=== PATIENT | female | born 1945 | race Caucasian/White ===

== ENCOUNTER 2016-10-29 11:05 | Emergency (ER) | payer BC ==
--- OUTSIDE RECORDS SUMMARY | 2016-10-29 11:26 | XMS REPORT | Continuity of Care Document ---
:1945 Author Organization [facility] ([facility]) Address [address] [place] [address] Phone [phone] Care Team Providers Name Role Phone Samira Cavazos Primary Care Provider [phone] Source Comments This disclosure is being made pursuant to the Care Everywhere program, applicable federal and state laws, and may not contain all informaitonavailable regarding this patient.[facility] ([facility]) Active Allergies and Adverse Reactions Allergen Noted Date Severity Reactions Comments Alendronate 08/11/2013 OTHER Joint pain Codeine Mental status changes,Dizziness,Weakness Diazepam 02/02/2013 Mental status changes Ibandronate 08/11/2013 Pruritus Lisinopril 08/11/2013 Diarrhea Lorazepam 02/02/2013 Mental status changes Morphine 02/02/2013 Mental status changes Current Medications Prescription Sig. Disp. Refills Start Date End Date Status acetaminophen 325 mg Take 2 Tabs by mouth 30 Tab 0 02/02/2013 Active tablet every 4 hours as needed. Indications: PAIN docusate 100 mg Take 1 Cap by mouth 2 30 Cap 0 02/02/2013 Active capsule times daily as needed. Indications: CONSTIPATION sennosides 8.6 mg Take 1-2 Tabs by 30 Tab 0 02/02/2013 Active tablet mouth 2 times daily as needed. Indications: CONSTIPATION aspirin 81 mg chewable Take 81 mg by mouth Active tablet daily. calcium carbonate (500 Take 1 Tab by mouth 2 Active mg Ca) 1250 mg times daily. -vitamin D 200 unit per tablet fluticasone 50 use 2 Sprays into the Active mcg/Actuation nasal nose daily. spray calcitonin 200 use 1 [place] into the Active unit/actuation nasal nose daily. Alternate spray nostrils. Indications: POST-MENOPAUSAL OSTEOPOROSIS metoPROLol succinate Take 50 mg by mouth Active 50 mg XL tablet daily. atorvastatin 10 mg Take 10 mg by mouth Active tablet every evening. Active Problems Problem Noted Date PVD (posterior vitreous detachment) 06/22/2014 Cataract, nuclear sclerotic, both eyes 06/22/2014 Bilateral myopia 08/11/2013 Posterior vitreous detachment, left eye 08/11/2013 Myopia 08/11/2013 HTN (hypertension) 02/02/2013 Traumatic subarachnoid hemorrhage 02/01/2013 Brain contusion 02/01/2013 Trauma 02/01/2013 Mammographic microcalcification 07/29/2005 Abnormal mammogram, unspecified 10/21/2001 Social History Tobacco Use Types Packs/Day Years Used Date Former Smoker Cigarettes 1 20 Quit: 10/23/2008 Smokeless Tobacco: Never Used Tobacco Cessation:Counseling Given: Yes Comments: Alcohol Use Drinks/Week oz/Week Comments Yes 7 Glasses of wine Last Filed Vital Signs Vital Sign Reading Time Taken Blood Pressure 174/80 03/14/2013 2:26 PM CDT Pulse 61 03/14/2013 2:26 PM CDT Temperature 36.7 C (98.1 F) 03/14/2013 2:26 PM CDT Respiratory Rate 16 02/02/2013 3:15 PM CDT Height 1.651 m (5' 5") 03/14/2013 2:26 PM CDT Weight 60.555 kg (133 lb 8 oz) 03/14/2013 2:26 PM CDT Body Mass Index 22.22 03/14/2013 2:26 PM CDT Oxygen Saturation 96% 02/02/2013 12:00 PM CDT Plan of Care Health Maintenance Due Date Last Done Comments HCV Screening 1945 Hepatitis B Vaccine (1 of 3 1945 - Primary Series) Tdap Vaccine 1957 Lipid Disorder Screening 1963 Td Vaccine 1963 Colonoscopy 07/17/1996 Zoster Vaccine 2006 Mammogram 12/18/2007 12/17/2006, Additional history exists 12/16/2005, 12/12/2004 Osteoporosis Screening (DXA 2011 Bone Density) Pneumococcal Vaccine (1 of 2 2011 - PCV13) Influenza Vaccine: Seasonal 12/24/2015 (#1) Results from Last 3 Months Not on file
--- NOTE | 2016-10-29 11:43 | ERNOTE ---
Abdominal HPI - General Time Seen by Provider: 10/29/16 11:12 Source: patient Exam Limitations: no limitations - Immun/Allergies/Home Medications Immunizatons: IMMUNIZATION HX Immunizations Up to Date Yes History of Influenza Vaccine Yes Hx Pneumococcal Vaccination Yes Allergies/Adverse Reactions: Allergies alendronate sodium [From Fosamax] Allergy (Verified 10/29/16 11:20) codeine Allergy (Verified 10/29/16 11:20) ibandronate sodium [From Boniva] Allergy (Verified 10/29/16 11:20) lisinopril Allergy (Verified 10/29/16 11:20) lorazepam [From Ativan] Allergy (Verified 10/29/16 11:20) morphine Allergy (Verified 10/29/16 11:20) Home Medications: HOME MEDICATIONS Aspirin [Aspirin Enteric Coated] 81 mg PO DAILY 03/06/13 [Last Taken Unknown] Calcium Citrate/Vitamin D3 [Calcium Citrate with D Tablet] 1 each PO BID [Last Taken Unknown] [id number]-[id number] [Beano] 300 unit PO DAILY PRN 10/29/16 [Last Taken Unknown ] Atorvastatin Calcium [Lipitor] 10 mg PO DAILY 10/29/16 [Last Taken Unknown] Fluticasone Propionate [Flonase] 1 spray NS DAILY PRN 10/29/16 [Last Taken Unknown] Metoprolol Succinate [Toprol Xl] 50 mg PO DAILY 10/29/16 [Last Taken Unknown] Metoprolol Tartrate [Lopressor] 25 mg PO DAILY 10/29/16 [Last Taken Unknown] Multivit with Iron-Minerals [Compete] 1 each PO DAILY 10/29/16 [Last Taken Unknown] Polyethylene Glycol 3350 [Miralax] 17 gm PO DAILY PRN 10/29/16 [Last Taken Unknown] Simethicone [Gas Relief] 250 mg PO DAILY PRN 10/29/16 [Last Taken Unknown] Sulfamethoxazole/Trimethoprim [Bactrim Ds] 1 tab PO BID #20 tab 10/29/16 [Last Taken Unknown] - History of Present Illness Narrative: Patient is here for abdominal and back pain she has had for about a week. The back pain is in the right lower back, is constant but exacerbated with certain movements, no radiation, no numbness or weakness. She denies any recent fall or injury. pain 2/10 currently, up to 8/10 Her abdomen feels distended with diffuse discomfort in the lower abdomen, pain 2 /10, max 3/10, some nausea, no vomiting, regular, daily bowel movements, no urinary complaints, had a hysterectomy , still has her ovaries, had a colonoscopy seven years ago. She has a history of abdominal aortic aneurysm, last ultrasound from 04/2015 showed size of 2.7cm max. Review of Systems - Review of Systems Constitutional: Absent: recent illness, fever, chills ENT: Absent: nasal drainage, sore throat Respiratory: Absent: shortness of breath, cough Cardiology: Absent: chest pain Gastrointestinal/Abdominal: Present: See HPI, nausea. Absent: vomiting, diarrhea Genitourinary: Absent: frequency, pain, dysuria Musculoskeletal: Present: See HPI, back pain Neurological: Present: headache - slight. Absent: weakness, numbness - Patient's Past Medical History Patient History - Medical: Osteoporosis Patient History - Cardiac/Respiratory: Hypertension, Hyperlipidemia Patient History - Cancer: No Hx of Cancer Patient History - Surgical Procedures: Appendectomy, Colonoscopy, Hysterectomy Patient History - Other: None LMP (females 10-50): Menopausal - Family History Father Family History - Cancer: Pancreatic Mother Family History - Medical: Dementia, Osteoporosis Family History - Cardiac/Respiratory: TIA Brother Family History - Cancer: Colon - Social History Living Situations: home Abuse History: No History of abuse Psych History: No pertinent hx Smoking Status: Former smoker Alcohol Use: none Drug Use: none - Immunizations Immunizations Up to Date: Yes Hx Pneumococcal Vaccination: Yes History of Influenza Vaccine: Yes Physical Exam - Physical Exam General Appearance: Present: wd/wn, alert, no apparent distress Respiratory: Present: no respiratory distress, normal breath sounds, no accessory muscle use, lungs clear Cardiovascular/Chest: Present: regular rate, rhythm, no murmur Gastrointestinal/Abdominal: Present: normal bowel sounds, soft, tenderness - mild lower abdomen, distended. Absent: guarding, rebound Back Exam: Present: normal inspection, no vertebral tenderness, other - tender right lower back next saccrum, no pain on straight leg raise Extremity Exam: Present: normal inspection Neurological Exam: Present: alert, oriented, normal mood/affect, no motor/ sensory deficits Skin Exam: Present: normal color, warm/dry ED Progress - Results and Orders Patient's Lab Results:: I have reviewed the patient's lab results. - Vital Signs Patient's Vital Signs:: I have reviewed the patient's vital signs. - X-Ray X-Ray #1 X-Ray: abdomen - non specific bowel gas pattern Interpretation: Reviewed by me - Progress/Reassessment Progress Note-Subjective: 10/29/16 12:44 discussed results and plan, will treat UTI, if symptoms don't improve over the next few days call PCP for follow up and further testing Departure - Departure Clinical Impression: Back pain Qualifiers: Back pain location: low back pain Chronicity: acute Back pain laterality: right Sciatica presence: without sciatica Qualified Code(s): M54.5 - Low back pain UTI (urinary tract infection) Qualifiers: Urinary tract infection type: acute cystitis Hematuria presence: without hematuria Qualified Code(s): N30.00 - Acute cystitis without hematuria Disposition: Home self-care Condition: Good Instructions: Urinary Tract Infection, Adult, [id number] Additional Instructions: if your symptom do not improve over the few days call your doctor for follow up and further testing. consider taking a probiotic with the antibiotic Referrals: Samira Cavazos MD [Primary Care Provider] - Prescriptions: Sulfamethoxazole/Trimethoprim [Bactrim Ds] 1 tab PO BID #20 tab
[2016-10-29 11:53] LABS: Hematocrit 38.9 % (37.0-47.0); Hemoglobin 13.4 gm/dL (12.5-16.0); Mean Cell Volume 93.5 fl (78-100); Mean Corpuscular Hemoglobin 32.2 pg (27-31); Mean Corpuscular Hgb Conc 34.4 g/dl (32-36); Mean Platelet Volume 10.9 fl (6.0-9.5); Neutrophil # 3.7 K/mm3 (1.3-6.0); Neutrophil % 60.1 % (42-75.0); Platelet Count 244 K/mm3 (150-450); Red Blood Count 4.16 M/mm3 (4.2-5.4); Red Cell Distribution Width 13.2 % (11.5-14.0); White Blood Count 6.1 K/mm3 (4.0-10.5)
[2016-10-29 12:04] LABS: Albumin * 4.3 gm/dl (3.4-5.0); Anion Gap 10.3 mmol/L (6.8-13.8); BUN/Creatinine Ratio 20.9 (9.0-21.6); Bilirubin, Total 0.4 mg/dL (0.0-1.1); Calcium * 9.6 mg/dL (7.9-10.9); Carbon Dioxide 30.9 mmol/L (24-32.6); Potassium 4.2 mmol/L (3.4-4.6); Total Protein 8.8 gm/dL (6.2-8.2)
[2016-10-29 12:12] LABS: Urine Bilirubin Negative (NEGATIVE); Urine Ketone Negative (NEGATIVE); Urine Nitrite Negative (NEGATIVE); Urine Protein Negative (NEGATIVE); Urine Urobilinogen Normal (NORMAL); Urine pH 6.5 pH (5.0-7.0)
[2016-10-29 12:24] LABS: Urine Appearance Clear; Urine Blood 5 /ul (NEGATIVE); Urine Color Yellow
[2016-10-29 12:25] LABS: Urine Bacteria TRACE; Urine RBC 0-5 /hpf (0-5)
[2016-10-29 12:56] VITALS: BP 156/91
== END 2016-10-29 12:54 | disposition home or self-care (01) ==
LOC: ER 11:05
DX: M54.5 Low back pain (principal); N30.00 Acute cystitis without hematuria; M81.0 Age-related osteoporosis without current pathological fracture; I10 Essential (primary) hypertension; E78.5 Hyperlipidemia, unspecified

== ENCOUNTER 2017-02-16 18:25 | Observation (INO) | payer BC ==
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
[2017-02-16] MEDS ORDERED: KETOROLAC TROMETHAMINE 60 MG/2 ML VIAL IM ONE (19:51)
[2017-02-16] MEDS ORDERED: KETOROLAC TROMETHAMINE 30 MG/ML VIAL ONE (20:05)
[2017-02-16] MEDS ORDERED: HYDROcodone/ACETAMINOPHEN 1 EACH TABLET PO ONE (21:24)
[2017-02-16] MEDS ORDERED: HYDROcodone/ACETAMINOPHEN 1 EACH TABLET ONE (21:31)
[2017-02-16 23:06] LABS: Hematocrit 35.6 % (37.0-47.0); Hemoglobin 12.2 gm/dL (12.5-16.0); Mean Cell Volume 93.2 fl (78-100); Mean Corpuscular Hemoglobin 31.9 pg (27-31); Mean Corpuscular Hgb Conc 34.3 g/dl (32-36); Mean Platelet Volume 11.1 fl (6.0-9.5); Neutrophil # 6.8 K/mm3 (1.3-6.0); Platelet Count 199 K/mm3 (150-450); Red Blood Count 3.82 M/mm3 (4.2-5.4); Red Cell Distribution Width 12.6 % (11.5-14.0); White Blood Count 9.1 K/mm3 (4.0-10.5)
[2017-02-16 23:19] LABS: Albumin * 3.6 gm/dl (3.4-5.0); Anion Gap 13.8 mmol/L (6.8-13.8); Bilirubin, Total 0.5 mg/dL (0.0-1.1); Ca. Corrected For Albumin 8.7 mg/dL (8.4-10.2); Calcium * 8.7 mg/dL (7.9-10.9); Carbon Dioxide 24.9 mmol/L (24-32.6); Potassium 3.7 mmol/L (3.4-4.6); Total Protein 7.4 gm/dL (6.2-8.2)
[2017-02-16] MEDS ORDERED: FLUTICASONE PROPIONATE 120 SPRAY INHALER NS PRN (23:44)
[2017-02-16] MEDS ORDERED: SIMETHICONE 80 MG TAB.CHEW PO PRN (23:57)
--- NOTE | 2017-02-17 00:08 | HP ---
Chief Complaint - Chief Complaint Date of Service: 02/17/17 Time of Service: 00:05 Chief Complaint: ' Fall, sacral fracture'. Source of HPI- Pt; reliable, ERP report. History of Present Illness: Mr. Tam is a 71-yr-old WF pt of Dr. Samira Cavazos with a PMH of: AAA, HTN , HLD, & Osteoporosis. Pt states that she tripped on her dogs at home causing her to fall on a concrete pavement at her garage. She landed on her the buttocks during the fall and her RT hip also came in contact with the ground. She reports having severe pain on her sacral area. She did not hit her head on the surface or objects during the fall. There was no loss of consciousness too. She denies any numbness or tingling on either extremity. Also no pain radiation from back to the lower extremities. She was brought to the ED via the ambulance. She had multiple radiographic imaging involving Lumbar and pelvic X- ray, cervical and Thoracic CT and there were no acute findings involving fractures. However, the Sacral- Coccyx x-ray showed she had possible S4 fracture. Pain was not adequately controlled at the ED. She will be admitted under observation status due to mobility limitation, for pain mgt and for PT/ OT evaluation in am for proper ambulating assistive device. d. - Patient's Past Medical History Patient History - Medical: Osteoporosis Patient History - Cardiac/Respiratory: Hypertension, Hyperlipidemia Patient History - Cancer: No Hx of Cancer Patient History - Surgical Procedures: Appendectomy, Colonoscopy, Hysterectomy Patient History - Other: None LMP (females 10-50): Menopausal - Family History Father Family History - Cancer: Pancreatic Mother Family History - Medical: Dementia, Osteoporosis Family History - Cardiac/Respiratory: TIA Brother Family History - Cancer: Colon - Social History Living Situations: spouse Abuse History: No History of abuse Psych History: No pertinent hx Smoking Status: Never smoker Have you smoked in the past 12 months: No Do you dip or chew tobacco: No Alcohol Use: occasionally Drug Use: none - Immunizations Immunizations Up to Date: Yes Hx Pneumococcal Vaccination: Yes History of Influenza Vaccine: Yes Review Of Systems (GEN) - Review of Systems Generalized/Overall Review: Present: Weakness. Absent: Chills, Fever, Malaise, Diaphoresis EENTM: Absent: Eye Pain, Blurred Vision, Tearing, Double Vision Respiratory: Absent: Cough, Shortness of Breath, Orthopnea Cardiac: Absent: Chest Pain, Edema, Palpitations, Syncope Abdominal: Absent: Nausea, Vomiting, Hematemesis, Abdominal Pain, Constipation, Diarrhea, Melena Genitourinary: Absent: Burning, Itching, Urgency, Frequency, Hesitancy Musculoskeletal: Present: Back Pain. Absent: Joint Pain, Joint Swelling, Muscle Pain, Neck Pain Neurological: Present: Headache. Absent: Anxiety, Depressed, Emotional Problems , Tremors Skin: Absent: Dryness, Lesions, Bruising Endocrine: Present: Intolerance to Cold, Increased Thirst Misc: All systems neg except as marked Allergies/Adverse Reactions: Allergies Allergy/AdvReac Type Severity Reaction Status Date / Time alendronate sodium Allergy Verified 10/29/16 11:20 [From Fosamax] codeine Allergy Verified 10/29/16 11:20 ibandronate sodium Allergy Verified 10/29/16 11:20 [From Boniva] lisinopril Allergy Verified 10/29/16 11:20 lorazepam [From Ativan] Allergy Verified 10/29/16 11:20 morphine Allergy Verified 10/29/16 11:20 Home Medications: HOME MEDICATIONS Aspirin [Aspirin Enteric Coated] 81 mg PO DAILY 03/06/13 [Last Taken Unknown] Calcium Citrate/Vitamin D3 [Calcium Citrate with D Tablet] 1 each PO BID [Last Taken Unknown] Gqqxp-C-Hohhreyrtzhgl [Beano] 300 unit PO DAILY PRN 10/29/16 [Last Taken Unknown ] Atorvastatin Calcium [Lipitor] 10 mg PO DAILY 10/29/16 [Last Taken Unknown] Fluticasone Propionate [Flonase] 1 spray NS DAILY PRN 10/29/16 [Last Taken Unknown] Metoprolol Succinate [Toprol Xl] 50 mg PO DAILY 10/29/16 [Last Taken Unknown] Metoprolol Tartrate [Lopressor] 25 mg PO DAILY 10/29/16 [Last Taken Unknown] Multivit with Iron-Minerals [Compete] 1 each PO DAILY 10/29/16 [Last Taken Unknown] Polyethylene Glycol 3350 [Miralax] 17 gm PO DAILY PRN 10/29/16 [Last Taken Unknown] Simethicone [Gas Relief] 250 mg PO DAILY PRN 10/29/16 [Last Taken Unknown] Exam - Exam Vital Signs: Vital Signs - Last Taken Temp 36.8 C 02/16/17 23:29 Pulse 71 02/16/17 23:29 Resp 20 02/16/17 23:29 BP 172/81 02/16/17 23:29 Pulse Ox 96 02/16/17 23:29 Diagnostic Studies: Laboratory Results WBC 9.1 K/mm3 (4.0-10.5) 02/16/17 22:50 RBC 3.82 M/mm3 (4.2-5.4) L 02/16/17 22:50 Hgb 12.2 gm/dL (12.5-16.0) L 02/16/17 22:50 Hct 35.6 % (37.0-47.0) L 02/16/17 22:50 MCV 93.2 fl (78-100) 02/16/17 22:50 MCH 31.9 pg (27-31) H 02/16/17 22:50 MCHC 34.3 g/dl (32-36) 02/16/17 22:50 RDW 12.6 % (11.5-14.0) 02/16/17 22:50 Plt Count 199 K/mm3 (150-450) 02/16/17 22:50 MPV 11.1 fl (6.0-9.5) H 02/16/17 22:50 Immature Gran % (Auto) 0.50 % (0.001-0.429) H 02/16/17 22:50 Immature Gran # (Auto) 0.05 K/mm3 (0.000-0.0310) H 02/16/17 22:50 Neutrophils % 74.0 % (42-75.0) 02/16/17 22:50 Lymphocytes % 14.2 % (20-51) L 02/16/17 22:50 Monocytes % 9.9 % (0.0-9) H 02/16/17 22:50 Eosinophils % 0.9 % (0.0-3.0) 02/16/17 22:50 Basophils % 0.5 % (0.0-1.0) 02/16/17 22:50 Nucleated RBC % 0.0 k/mm3 (0-1) 02/16/17 22:50 Neutrophils # 6.8 K/mm3 (1.3-6.0) H 02/16/17 22:50 Lymphocytes # 1.3 k/mm3 (1.5-3.5) L 02/16/17 22:50 Monocytes # 0.9 k/mm3 (0.0-1.0) 02/16/17 22:50 Eosinophils # 0.1 k/mm3 (0.0-0.7) 02/16/17 22:50 Absolute Basophils 0.1 k/mm3 (0.0-0.1) 02/16/17 22:50 Sodium 134 mmol/L (132-142) 02/16/17 22:50 Plasma Sodium 134 mmol/L (130-142) 02/16/17 22:50 Potassium 3.7 mmol/L (3.4-4.6) 02/16/17 22:50 Chloride 99 mmol/L (97-106) 02/16/17 22:50 Carbon Dioxide 24.9 mmol/L (24-32.6) 02/16/17 22:50 Anion Gap 13.8 mmol/L (6.8-13.8) 02/16/17 22:50 BUN 18 mg/dL (3-23) 02/16/17 22:50 Creatinine 0.82 mg/dL (0.4-1.4) 02/16/17 22:50 Est GFR (Non-Af Amer) 73 mL/min (60-130) 02/16/17 22:50 BUN/Creatinine Ratio 22.0 (9.0-21.6) H 02/16/17 22:50 Random Glucose 110 mg/dL (70-110) 02/16/17 22:50 Calcium 8.7 mg/dL (7.9-10.9) 02/16/17 22:50 Calcium Adj for Albumin 8.7 mg/dL (8.4-10.2) 02/16/17 22:50 Total Bilirubin 0.5 mg/dL (0.0-1.1) 02/16/17 22:50 AST 24 U/L (0-48) 02/16/17 22:50 ALT 27 U/L (19-67) 02/16/17 22:50 Alkaline Phosphatase 99 U/L (50-170) 02/16/17 22:50 Total Protein 7.4 gm/dL (6.2-8.2) 02/16/17 22:50 Albumin 3.6 gm/dl (3.4-5.0) 02/16/17 22:50 Assessment/Plan - Assessment/Plan (1) Sacral fracture Assessment: X-ray shows possible S4 fracture, which is mainly managed nonoperatively with progressive weight bearing as tolerated. Will provide supportive cares with: Pain medication as needed, monitoring for any neurological deficits, PT/OT evaluation for proper ambulating assistive device. Can be discharged with appropriate pain. meds and once evaluated by PT/OT. CBC in am to ensure no sign of blood loss. Problem: Acute (2) HTN (hypertension) Assessment: Stable- On Metorprolol. Problem: Chronic Qualifiers: Hypertension type: essential hypertension Qualified Code(s): I10 - Essential (primary) hypertension (3) HLD (hyperlipidemia) Assessment: Stable- On crestor. Problem: Chronic
[2017-02-17] MEDS: NORMAL SALINE 1,000 ML IV PRN ×2 (00:19→08:12)
[2017-02-17] MEDS: HYDROcodone/ACETAMINOPHEN 1 EACH TABLET PO PRN ×4 (01:01→14:47)
[2017-02-17 05:57] LABS: Hematocrit 35.6 % (37.0-47.0); Hemoglobin 12.1 gm/dL (12.5-16.0); Mean Cell Volume 94.4 fl (78-100); Mean Corpuscular Hemoglobin 32.1 pg (27-31); Mean Platelet Volume 11.2 fl (6.0-9.5); Neutrophil # 4.3 K/mm3 (1.3-6.0); Neutrophil % 68.4 % (42-75.0); Platelet Count 190 K/mm3 (150-450); Red Blood Count 3.77 M/mm3 (4.2-5.4); Red Cell Distribution Width 12.6 % (11.5-14.0); White Blood Count 6.3 K/mm3 (4.0-10.5)
[2017-02-17 07:43] LABS: Urine Bilirubin Negative (NEGATIVE); Urine Blood Negative /ul (NEGATIVE); Urine Ketone 15 mg/dL (NEGATIVE); Urine Nitrite Negative (NEGATIVE); Urine Protein Negative (NEGATIVE); Urine Specific Gravity 1.015 SP.GR. (1.005-1.010); Urine Urobilinogen Normal (NORMAL); Urine pH 6.5 pH (5.0-7.0)
[2017-02-17 08:17] LABS: Urine Appearance Slightly Cloudy; Urine Bacteria 2+; Urine Color Yellow; Urine RBC 0-5 /hpf (0-5); Urine WBC 0-5 /hpf (0-5)
[2017-02-17] MEDS ORDERED: METOPROLOL TARTRATE 25 MG TABLET PO SCH (09:00)
[2017-02-17] MEDS ORDERED: ASPIRIN 81 MG TABLET.DR PO SCH (09:00)
[2017-02-17] MEDS ORDERED: MULTIVIT-MIN/FA/LYCOPEN/LUTEIN 1 TAB TABLET PO SCH (09:00)
[2017-02-17] MEDS ORDERED: METOPROLOL SUCCINATE 50 MG, METOPROLOL SUCCINATE 25 MG PO SCH ×2 (09:00)
[2017-02-17] MEDS ORDERED: METOPROLOL SUCCINATE 50 MG TABLET.SA PO SCH (09:00)
[2017-02-17] MEDS ORDERED: FLU VACC QS2017-18(6MOS UP)/PF 60 MCG/0.5 ML SYRINGE IM ONE (09:00)
[2017-02-17] MEDS ORDERED: CALCIUM CARBONATE/VITAMIN D3 1 TAB TABLET PO SCH (09:00)
[2017-02-17 15:04] VITALS: BP 147/71
--- NOTE | 2017-02-17 15:31 | DS ---
Transfer Discharge Summary - Course Description of Stay: Lynda Tam is a 71-yr-old WF with a PMH of: AAA, HTN, HLD, & Osteoporosis who was admitted on 02/17/2017. The patient tripped on her dogs at home causing her to fall on a concrete pavement at her garage. She landed on her the buttocks during the fall and her RT hip also came in contact with the ground. She reports having severe pain on her sacral area. She did not hit her head on the surface or objects during the fall. There was no loss of consciousness too. She denied any numbness or tingling on either extremity. Also no pain radiation from back to the lower extremities. She was brought to the ED via the ambulance. She had multiple radiographic imaging involving Lumbar and pelvic X- ray, cervical and Thoracic CT and there were no acute findings involving fractures. However, the Sacral- Coccyx x-ray showed she had possible S4 fracture. Pain was not adequately controlled at the ED. She was admitted under observation status due to mobility limitation, for pain mgt and for PT/OT evaluation in am for proper ambulating assistive device. She did complain of sharp slicing pain running around her lower chest area depending where she turns. An MRI of her Thoracic and Lumbar spine was done and it showed nondisplaced acute fracture of T9 with probable left pedicle involvement, acute anterior compression fracture of T7 , both without retropulsion. Stable T6 compression fracture s/p kyphoplasty. T6-7 level parasternal disc herniation which effaces her thecal sac and her spinal cord. Right paracentral diosc herniation T9-10 with spiunal canla and neural foraminal compromise. Multiple central disc herniation atT7-T8, , T8-[address] Will and itz he recommended the patient to be transferred to their facility. I talked to the hospitalist, Dr. Vasquez, and he is accepting the patient. Procedures Performed: none - Results and Findings Results and Findings: Laboratory Results - last 24 hr 02/17/17 02/17/17 05:40 07:27 WBC 6.3 D RBC 3.77 L Hgb 12.1 L Hct 35.6 L MCV 94.4 MCH 32.1 H MCHC 34.0 RDW 12.6 Plt Count 190 MPV 11.2 H Immature Gran % (Auto) 0.50 H Immature Gran # (Auto) 0.03 Neutrophils % 68.4 Lymphocytes % 18.7 L Monocytes % 10.8 H Eosinophils % 1.0 Basophils % 0.6 Nucleated RBC % 0.0 Neutrophils # 4.3 Lymphocytes # 1.2 L Monocytes # 0.7 Eosinophils # 0.1 Absolute Basophils 0.0 Urine Color Yellow Urine Appearance Slightly cloudy Urine pH 6.5 Ur Specific Hamilton 1.015 Urine Protein Negative Urine Glucose (UA) Negative Urine Ketones 15 Urine Blood Negative Urine Nitrate Negative Urine Bilirubin Negative Urine Urobilinogen Normal Ur Leukocyte Esterase 25 H Urine RBC 0-5 Urine WBC 0-5 Ur Epithelial Cells 0-5 Urine Bacteria 2+ H Urine Culture Comments Culture to follow - Medications Medications: Active Medications Acetaminophen/Hydrocodone Bitart ([place] 5-325) 1 each PO Q4H PRN PRN Reason: Moderate Pain Stop: 03/19/17 00:40 Last Admin: 02/17/17 14:47 Dose: 1 each Aspirin (Aspirin Enteric Coated) 81 mg PO DAILY YULI Stop: 03/19/17 09:01 Last Admin: 02/17/17 08:05 Dose: 81 mg Calcium/Vitamin D (Calcarb 600 With Vitamin D) 1 tab PO BID YULI Stop: 03/19/17 09:01 Last Admin: 02/17/17 08:05 Dose: 1 tab Sodium Chloride (Sodium Chloride 0.9%) 1,000 mls @ 125 mls/hr IV .Q8H PRN PRN Reason: HYDRATION Stop: 03/18/17 23:51 Last Admin: 02/17/17 08:12 Dose: 125 mls/hr Metoprolol Succinate 50 mg/ (Metoprolol Succinate 25 mg) 75 mg PO DAILY YULI Stop: 03/19/17 09:01 Last Admin: 02/17/17 08:05 Dose: 75 mg Multivitamins ([facility]) 1 tab PO DAILY YULI Stop: 03/19/17 09:01 Last Admin: 02/17/17 08:05 Dose: 1 tab Discontinued Medications Acetaminophen/Hydrocodone Bitart ([place] 5-325) 1 each PO ONCE ONE Stop: 02/16/17 21:25 Last Admin: 02/16/17 21:33 Dose: 1 each Influenza Virus Vaccine Quadrival (Flulaval Quad 5040-0172 Syringe) 60 mcg IM .ONCE ONE Stop: 02/17/17 09:01 Last Admin: 02/17/17 08:06 Dose: 60 mcg Ketorolac Tromethamine (Toradol) 30 mg IM ONCE ONE Stop: 02/16/17 19:52 Last Admin: 02/16/17 20:07 Dose: 30 mg - Disposition Disposition: [facility] Condition: Stable Discharge Date: 02/17/17 Discharge Time: 16:30
[2017-02-17] MEDS ORDERED: CIPROFLOXACIN HCL 500 MG TABLET PO SCH (17:00)
[2017-02-17] MEDS ORDERED: ROSUVASTATIN CALCIUM 10 MG TABLET PO SCH (21:00)
[2017-02-17] MEDS ORDERED: POLYETHYLENE GLYCOL 3350 119 GM BTL PO PRN ×2 (23:55)
== END 2017-02-17 16:25 | disposition short-term general hospital (02) ==
LOC: ER 18:25 → MS 22:57
PROVIDERS: ADMIT Nurse Practitioner; ATTEND Internal Medicine
DX: S22.061A Stable burst fracture of T7-T8 vertebra, initial encounter for closed fracture (principal); S22.071A Stable burst fracture of T9-T10 vertebra, initial encounter for closed fracture; M51.24 Other intervertebral disc displacement, thoracic region; S24.153A Other incomplete lesion at T7-T10 level of thoracic spinal cord, initial encounter; W01.0XXA Fall on same level from slipping, tripping and stumbling without subsequent striking against object, initial encounter; M81.0 Age-related osteoporosis without current pathological fracture; I10 Essential (primary) hypertension
CPT/HCPCS: 36415; 51701; 71010; 72110; 72125; 72128; 72146; 72148; 72170; 72220; 80053; 81001; 85025; 87077; 87086; 87186; 90471; 90686; 96372; 97161; 99284; G0378; G8978; G8979; G8980

== ENCOUNTER 2019-07-20 17:50 | Inpatient (IN) ==
[2019-07-20] MEDS ORDERED: ACETAMINOPHEN 1,000 MG/100 ML BTL IV ONE (18:16)
[2019-07-20] MEDS ORDERED: ONDANSETRON HCL/PF 2 MG/ML VIAL IV ONE (18:16)
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
[2019-07-20 18:42] LABS: Hematocrit 40.8 % (37.0-47.0); Hemoglobin 13.8 gm/dL (12.5-16.0); Mean Cell Volume 96.2 fl (78-100); Mean Corpuscular Hemoglobin 32.5 pg (27-31); Mean Corpuscular Hgb Conc 33.8 g/dl (32-36); Mean Platelet Volume 10.5 fl (8-12.5); Neutrophil # 4.7 K/mm3 (1.3-6.0); Neutrophil % 67.2 % (42-75.0); Platelet Count 279 K/mm3 (150-450); Red Blood Count 4.24 M/mm3 (4.2-5.4); Red Cell Distribution Width 13.2 % (11.5-14.0)
[2019-07-20 18:46] LABS: Anion Gap 18.1 mmol/L (6.8-13.8); BUN/Creatinine Ratio 20.9 (9.0-21.6); Bilirubin, Total 0.5 mg/dL (0.0-1.1); Calcium * 9.3 mg/dL (7.9-10.9); Carbon Dioxide 20.8 mmol/L (24-32.6); Potassium 3.9 mmol/L (3.4-4.6); Total Protein 8.7 gm/dL (6.2-8.2)
[2019-07-20 19:01] LABS: Urine Bilirubin Negative (NEGATIVE); Urine Ketone 5 mg/dL (NEGATIVE); Urine Nitrite Negative (NEGATIVE); Urine Protein Negative (NEGATIVE); Urine Specific Gravity 1.015 SP.GR. (1.005-1.010); Urine Urobilinogen Normal (NORMAL)
[2019-07-20 19:10] LABS: Urine Appearance Clear (CLEAR); Urine Bacteria None Seen; Urine Blood 10 /ul (NEGATIVE); Urine Color Yellow; Urine RBC 0-5 /hpf (0-5); Urine WBC None Seen /hpf (0-5)
[2019-07-20] MEDS ORDERED: DIATRIZOATE MEGLUMINE, SODIUM 30 ML BTL PO ONE (19:27)
[2019-07-20] MEDS ORDERED: KETOROLAC TROMETHAMINE 30 MG/ML VIAL IV ONE (19:53)
[2019-07-21] MEDS ORDERED: ONDANSETRON HCL/PF 2 MG/ML VIAL IV PRN (00:08)
[2019-07-21] MEDS ORDERED: FLUTICASONE PROPIONATE 120 SPRAY INHALER NS PRN (00:31)
[2019-07-21] MEDS: BUTORPHANOL TARTRATE 2 MG/ML VIAL IV PRN ×4 (00:37→18:05)
[2019-07-21] MEDS: NORMAL SALINE 1,000 ML IV PRN ×3 (00:37→22:25)
[2019-07-21] MEDS: metroNIDAZOLE/SODIUM CHLORIDE 500 MG/100 ML BAG IV SCH ×3 (01:04→16:05)
[2019-07-21] MEDS: CIPROFLOXACIN IN 5 % DEXTROSE 400 MG/200 ML BAG IV SCH ×2 (02:08→12:31)
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
[2019-07-21] MEDS: METOPROLOL SUCCINATE 25 MG TABLET.SA PO SCH (11:41)
[2019-07-21] MEDS: METOPROLOL SUCCINATE 50 MG TABLET.SA PO SCH ×2 (11:41→12:29)
[2019-07-21] MEDS: traMADol HCL 50 MG TABLET PO PRN (16:03)
[2019-07-22] MEDS: metroNIDAZOLE/SODIUM CHLORIDE 500 MG/100 ML BAG IV SCH ×2 (01:01→08:44)
[2019-07-22] MEDS: traMADol HCL 50 MG TABLET PO PRN ×4 (01:07→21:36)
[2019-07-22] MEDS: CIPROFLOXACIN IN 5 % DEXTROSE 400 MG/200 ML BAG IV SCH (02:06)
[2019-07-22 06:36] LABS: Hematocrit 36.9 % (37.0-47.0); Hemoglobin 12.3 gm/dL (12.5-16.0); Mean Cell Volume 97.1 fl (78-100); Mean Corpuscular Hemoglobin 32.4 pg (27-31); Mean Corpuscular Hgb Conc 33.3 g/dl (32-36); Mean Platelet Volume 10.7 fl (8-12.5); Neutrophil # 3.1 K/mm3 (1.3-6.0); Neutrophil % 61.4 % (42-75.0); Platelet Count 232 K/mm3 (150-450); Red Cell Distribution Width 13.3 % (11.5-14.0); White Blood Count 5.1 K/mm3 (4.0-10.5)
[2019-07-22 06:37] LABS: Anion Gap 11.3 mmol/L (6.8-13.8); BUN/Creatinine Ratio 8.9 (9.0-21.6); Calcium * 8.5 mg/dL (7.9-10.9); Carbon Dioxide 25.4 mmol/L (24-32.6); Estimated Creat Clear 54.8; Potassium 3.7 mmol/L (3.4-4.6)
[2019-07-22] MEDS: ACETAMINOPHEN 325 MG TABLET PO PRN ×3 (07:11→21:35)
[2019-07-22] MEDS: NORMAL SALINE 1,000 ML IV PRN (08:47)
[2019-07-22] MEDS: METOPROLOL SUCCINATE 50 MG TABLET.SA PO SCH (08:49)
[2019-07-22] MEDS: METOPROLOL SUCCINATE 25 MG TABLET.SA PO SCH (08:49)
--- NOTE | 2019-07-22 09:18 | PN ---
Subjective - Date and Time Seen Date: 07/22/19 Time: 08:30 Subjective Narrative: Patient reports much better pain control this morning with tramadol and Tylenol. She tolerated clear liquid diet yesterday, and was having some diarrhea. No other new concerns. Objective - Review of Systems Generalized/Overall Review: Denies: Fever Respiratory: Denies: Shortness of Breath Cardiac: Denies: Chest Pain Abdominal: Reports: Abdominal Pain, Diarrhea Genitourinary Symptoms: Reports: No Symptoms Reported Musculoskeletal Complaints: Reports: No Symptoms Reported Skin: Reports: No Symptoms Reported - Vitals Vitals: Last Vital Signs Temp 36.5 C 07/22/19 02:07 Pulse 77 07/22/19 08:49 Resp 16 07/22/19 02:07 BP 149/72 07/22/19 08:49 Pulse Ox 94 07/22/19 02:07 - Abnormal Lab Findings Abnormal Lab Findings: Abnormal Lab Results 07/21/19 07/21/19 07/22/19 Range/Units 14:45 14:45 06:15 RBC 3.80 L (4.2-5.4) M/mm3 Hgb 12.3 L (12.5-16.0) gm/dL Hct 36.9 L (37.0-47.0) % MCH 32.4 H (27-31) pg Lymphocytes % 19.6 L (20-51) % Monocytes % 14.0 H (0.0-9) % Eosinophils % 3.6 H (0.0-3.0) % Lymphocytes # 0.99 L (1.5-3.5) k/mm3 ESR 31 H (0-15) mm/hr BUN/Creatinine Ratio (9.0-21.6) C-Reactive Prot, Quant 1.0 H (0.0-0.9) mg/dL 07/22/19 Range/Units 06:15 RBC (4.2-5.4) M/mm3 Hgb (12.5-16.0) gm/dL Hct (37.0-47.0) % MCH (27-31) pg Lymphocytes % (20-51) % Monocytes % (0.0-9) % Eosinophils % (0.0-3.0) % Lymphocytes # (1.5-3.5) k/mm3 ESR (0-15) mm/hr BUN/Creatinine Ratio 8.9 L (9.0-21.6) C-Reactive Prot, Quant (0.0-0.9) mg/dL - Exam Constitutional: Present: Alert, Cooperative, Well developed, No distress Respiratory: Present: lungs clear, normal breath sounds Cardiovascular/Chest: Present: regular rate, rhythm Abdomen: Present: Normal bowel sounds, soft, tender - Left lower quadrant Extremity: Absent: lower extremity edema Eye contact: Present: cooperative, good eye contact Assessment/Plan - Problems/Diagnosis (1) Diverticulitis large intestine Problem: Acute Qualifiers: Diverticulitis bleeding: without bleeding Diverticulitis complication: without perforation or abscess Qualified Code(s): K57.32 - Diverticulitis of large intestine without perforation or abscess without bleeding Narrative: She has been receiving IV Cipro and Flagyl, and will transition these medications to p.o. today. She tolerated clear liquids yesterday, and will advance her diet. We will stop IV fluids. We will need to ensure she can tolerate a diet prior to discharge. Pain is controlled with p.o. medications. Anticipate discharge in 24 to 48 hours. (2) Hypertension Problem: Chronic Qualifiers: Hypertension type: essential hypertension Qualified Code(s): I10 - Essential (primary) hypertension Narrative: Blood pressure has been slightly high, but not high enough and additional agent is needed. Currently the only antihypertensive she is prescribed is metoprolol. (3) AAA (abdominal aortic aneurysm) Problem: Chronic Qualifiers: Presence of rupture: without rupture Qualified Code(s): I71.4 - Abdominal aortic aneurysm, without rupture (4) HTN (hypertension) Problem: Chronic Qualifiers: Hypertension type: essential hypertension Qualified Code(s): I10 - Essential (primary) hypertension (5) CRF (chronic renal failure) Problem: Chronic Qualifiers: Chronic kidney disease stage: stage 3 (moderate) Qualified Code(s): N18.3 - Chronic kidney disease, stage 3 (moderate) Narrative: Her chronic renal failure is listed in her chart, but is apparently mild. GFR of 76 today.
[2019-07-22] MEDS: metroNIDAZOLE 500 MG TABLET PO SCH ×2 (10:11→16:43)
[2019-07-22] MEDS: CIPROFLOXACIN HCL 500 MG TABLET PO SCH ×2 (10:16→21:30)
[2019-07-23] MEDS: metroNIDAZOLE 500 MG TABLET PO SCH ×2 (00:58→08:42)
[2019-07-23] MEDS: traMADol HCL 50 MG TABLET PO PRN ×2 (04:30→10:31)
[2019-07-23] MEDS: ACETAMINOPHEN 325 MG TABLET PO PRN ×2 (04:30→10:30)
[2019-07-23] MEDS: METOPROLOL SUCCINATE 50 MG TABLET.SA PO SCH (08:42)
[2019-07-23] MEDS: CIPROFLOXACIN HCL 500 MG TABLET PO SCH (08:42)
[2019-07-23] MEDS: METOPROLOL SUCCINATE 25 MG TABLET.SA PO SCH (08:42)
--- NOTE | 2019-07-23 09:19 | DS ---
(1) Diverticulitis large intestine Problem: Acute Qualifiers: Diverticulitis bleeding: without bleeding Diverticulitis complication: without perforation or abscess Qualified Code(s): K57.32 - Diverticulitis of large intestine without perforation or abscess without bleeding (2) Hypertension Problem: Chronic Qualifiers: Hypertension type: essential hypertension Qualified Code(s): I10 - Essential (primary) hypertension (3) AAA (abdominal aortic aneurysm) Problem: Chronic Qualifiers: Presence of rupture: without rupture Qualified Code(s): I71.4 - Abdominal aortic aneurysm, without rupture (4) HTN (hypertension) Problem: Chronic Qualifiers: Hypertension type: essential hypertension Qualified Code(s): I10 - Essential (primary) hypertension (5) CRF (chronic renal failure) Problem: Chronic Qualifiers: Chronic kidney disease stage: stage 3 (moderate) Qualified Code(s): N18.3 - Chronic kidney disease, stage 3 (moderate) Date of Discharge:: 07/23/19 Hospital Course: Patient presented to the ED on 07/20 with lower abdominal pain, nausea, lower back pain, and constipation. She was diagnosed with diverticulitis and started on IV antibiotics. She could not tolerate po medications until 07/22. She sta rted clear liquids on 07/21, and advanced to full diet on 07/22. She felt comfortable going home on the day of discharge. She will be DC'd with caridad and patricia, to complete a 7 day course. Procedures Performed: none Results and Findings: Lab Pending Results 07/20/19 18:25: WBC 7.0, RBC 4.24, Hgb 13.8, Hct 40.8, MCV 96.2, MCH 32.5 H, MCHC 33.8, RDW 13.2, Plt Count 279, MPV 10.5, Immature Gran % (Auto) 0.30, Immature Gran # (Auto) 0.02, Neutrophils % 67.2, Lymphocytes % 18.3 L, Monocytes % 11.7 H, Eosinophils % 1.9, Basophils % 0.6, Nucleated RBC % 0.0, Neutrophils # 4.7, Lymphocytes # 1.28 L, Monocytes # 0.8, Eosinophils # 0.1, Absolute Basophils 0.0 07/20/19 18:25: Sodium 131 L, Plasma Sodium 131, Potassium 3.9, Chloride 96 L, Carbon Dioxide 20.8 L, Anion Gap 18.1 H, BUN 18, Creatinine 0.86, Est GFR (Non- Af Amer) 69, BUN/Creatinine Ratio 20.9, Random Glucose 118 H, Calcium 9.3, Juno cium Adj for Albumin 9.0, Total Bilirubin 0.5, AST 25, ALT 34, Alkaline Phosphatase 113, Total Protein 8.7 H, Albumin 4.0, Lipase 114 07/20/19 18:56: Urine Color Yellow, Urine Appearance Clear, Urine pH 6.0, Ur Specific [place] 1.015, Urine Protein Negative, Urine Glucose (UA) Negative, Urine Ketones 5, Urine Blood 10 H, Urine Nitrate Negative, Urine Bilirubin Negative, Urine Urobilinogen Normal, Ur Leukocyte Esterase Negative, Urine RBC 0-5, Urine WBC None seen, Ur Epithelial Cells 0-5, Urine Bacteria None seen, Urine Culture Comments No culture indicated 07/21/19 14:45: ESR 31 H 07/21/19 14:45: C-Reactive Prot, Quant 1.0 H 07/22/19 06:15: WBC 5.1 D, RBC 3.80 L, Hgb 12.3 L, Hct 36.9 L, MCV 97.1, MCH 32.4 H, MCHC 33.3, RDW 13.3, Plt Count 232, MPV 10.7, Immature Gran % (Auto) 0.40, Immature Gran # (Auto) 0.02, Neutrophils % 61.4, Lymphocytes % 19.6 L, Monocytes % 14.0 H, Eosinophils % 3.6 H, Basophils % 1.0, Nucleated RBC % 0.0, Neutrophils # 3.1, Lymphocytes # 0.99 L, Monocytes # 0.7, Eosinophils # 0.2, Absolute Basophils 0.1 07/22/19 06:15: Sodium 135, Plasma Sodium 135, Potassium 3.7, Chloride 102, Carbon Dioxide 25.4, Anion Gap 11.3, BUN 7 D, Creatinine 0.79, Est GFR (Non-Af Amer) 76, BUN/Creatinine Ratio 8.9 L, Random Glucose 90, Calcium 8.5 Discharge Location: Home Disposition: Home self-care Condition: Good Discharge Activity: Activity as tolerated Discharge Diet: Resume usual diet - Avoid sugary or greasy foods Referrals: Samira Cavazos MD [Primary Care Provider] - One Week Prescriptions (Any new or edited meds): Ciprofloxacin HCl [Cipro] 500 mg PO BID #7 tab Transmission Status: Pending to [place], [place] metroNIDAZOLE [Flagyl] 500 mg PO Q8H #11 tab Transmission Status: Pending to [place], [place] Acetaminophen [Tylenol] 650 mg PO Q6H PRN #30 tab PRN Reason: Mild Pain (Pain Scale 1-3) Transmission Status: Pending to [place], [place] traMADol HCL [Ultram] 50 mg PO Q6H PRN #28 tab PRN Reason: Moderate Pain (Pain Scale 4-6) Transmission Status: Received by [place], [place] Complete Home Medications List: Complete Home Medication List: Aspirin [Aspirin Enteric Coated] 81 mg PO DAILY 03/06/13 Calcium Citrate/Vitamin D3 [Calcium Citrate with D Tablet] 1 ea PO BID 03/06/13 Multivit with Iron,Minerals [Compete] 1 ea PO DAILY 10/29/16 Polyethylene Glycol 3350 [Miralax] 17 gm PO DAILY PRN 10/29/16 Simethicone [Gas Relief] 250 mg PO DAILY PRN 10/29/16 jezhw-w-avsshxlcefvkc 300 unit disintegrating tablet 300 unit PO DAILY PRN 01/28/18 atorvastatin 10 mg tablet 10 mg PO DAILY #90 tab 09/02/18 fluticasone propionate 50 mcg/actuation nasal spray,suspension 1 spray EVGENY DAILY PRN #15.8 g 03/01/19 metoprolol succinate 25 mg tablet,extended release 24 hr 25 mg PO DAILY #90 tab 07/04/19 metoprolol succinate 50 mg tablet,extended release 24 hr 50 mg PO DAILY #90 tab 07/04/19 Docusate Sodium [Colace] 100 mg PO DAILY PRN 07/20/19 Acetaminophen [Tylenol] 650 mg PO Q6H PRN #30 tab 07/23/19 Ciprofloxacin HCl [Cipro] 500 mg PO BID #7 tab 07/23/19 metroNIDAZOLE [Flagyl] 500 mg PO Q8H #11 tab 07/23/19 traMADol HCL [Ultram] 50 mg PO Q6H PRN #28 tab 07/23/19
[2019-07-23 11:41] VITALS: BP 172/90
== END 2019-07-23 11:57 | disposition home or self-care (01) | DRG 392 ==
LOC: ER 17:50 → MS 23:56
PROVIDERS: ADMIT Internal Medicine; ATTEND Internal Medicine
CPT/HCPCS: 36415; 72110; 74019; 74020; 74177; 80048; 80053; 81001; 83690; 85025; 85652; 86140; 93005; 96365; 96375; 99283; 99284; J0131; J2405; Q9963; Q9967